=== PATIENT | male | born 1970 | race Two or more races ===

== ENCOUNTER 2024-09-10 16:02 | Emergency (ER) | payer OTHER ==
[~2024-09-10] VITALS: Ht 175.3 cm; Wt 78.0 kg
[2024-09-10] MEDS ORDERED: PROTONIX20 MG (16:11)
[2024-09-10] MEDS ORDERED: TRAMADOL HCL 50 MG TABLET PO ONE (18:30)
== END 2024-09-10 21:21 | disposition home or self-care (01) ==
LOC: ER 16:02
DX: S93.401A Sprain of unspecified ligament of right ankle, initial encounter (principal); X58.XXXA Exposure to other specified factors, initial encounter; Y93.68 Activity, volleyball (beach) (court); Y92.832 Beach as the place of occurrence of the external cause; Y99.9 Unspecified external cause status

== ENCOUNTER 2024-09-14 09:08 | Outpatient (CLI) | payer OTHER ==
[~2024-09-14 09:08] MED LIST: PROTONIX20 MG
[2024-09-14] MEDS ORDERED: CELEBREX200MG PO (10:54)
[2024-09-14] MEDS ORDERED: NORFLEX100MG PO (10:55)
== END 2024-09-14 09:18 | disposition home or self-care (01) ==
LOC: SONOGRAMA 09:08
PROVIDERS: ATTEND Physical Medicine & Rehabilitation
DX: S86.112A Strain of other muscle(s) and tendon(s) of posterior muscle group at lower leg level, left leg, initial encounter (principal)